=== PATIENT | male | born 1975 | race Hispanic/Latino ===

== ENCOUNTER 2021-08-23 13:49 | Emergency (ER) | payer OTHER ==
--- OUTSIDE RECORDS SUMMARY | 2021-08-23 13:53 | XMS REPORT | Continuity of Care Document ---
:1975 Author Organization [facility] t Address [address] [place] [address] [address]. [address] [place] [address] Care Team Providers Name Role Phone COLTEN, Zafar Attending Clinician Unavailable Jimmy Farr DO Attending Clinician BECK Attending Clinician Unavailable BECK Attending Clinician Unavailable Beck SANTANA Attending Clinician PATRICIA Attending Clinician Unavailable Jen CHONG, A Attending Clinician Colten VALENZUELA, A Attending Clinician Lab, Fam Pob I Attending Clinician Unavailable Doctor Unassigned, Name Attending Clinician Unavailable Payers Payer Name Policy Type Policy Number Effective Date Expiration Date S ourjakob [employer] CHOICE POS [id number] 2018 00:00:00 II Problems Condition Condition Condition Status Onset Resolution Last Treating Co mments Source Name Details Category Date Date Treatment Clinician Date Hyperchole Hyperchole Disease Active 2020-0 U nivers sterolemia sterolemia 2-14 it y of 00:00: [address] Prediabete Prediabete Disease Active 2019-0 U nivers s s 2-14 ity of 00:00: [place] [address] 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 Cervical Cervical Disease Active Unive rs herniated herniated 5-12 ity of disc disc 00:00: [place] [address] [facility] Chronic Chronic Disease Active 2017- Univers low back low back 5-12 ity of pain pain 00:00: [place] without without 00 Medical sciatica, sciatica, Bran ch unspecifie unspecifie d back d back pain pain laterality laterality Upper back Upper back Disease Active 2017- U nivers pain pain 5-12 ity of 00:00: [place] [address] [facility] Chronic Chronic Disease Active 2017-0 Univers constipati constipati 5-12 it y of on on 00:00: [address] Allergies, Adverse Reactions, Alerts Allergy Allergy Status Severity Reaction(s) Onset Inactive Treating Comm ents Source Name Type Date Date Clinician NO KNOWN Drug Active Univers ALLERGIE Class ity of S [facility] Social History Social Habit Start Date Stop Date Quantity Comments Source Alcohol intake 2019-10-04 2019-10-04 Ex-drinker [facility] 00:00:00 00:00:00 (finding) [facility] Tobacco use and 2019-10-04 2019-10-04 Never used Universit y of exposure 00:00:00 00:00:00 [facility] Sex Ass[birth year] Universit y of 00:00:00 00:00:00 [facility] Smoking Status Start Date Stop Date Source Never smoker [facility] Medications Ordered Filled Start Stop Current Ordering Indication Dosage Frequency Signature Comments Components Source Medication Medication Date Date Medication? Clinician (SIG) Name Name acetaminoph 2020- No Take by U nivers en 09-2404 mouth ity of (TYLENOL) 17:48[place] 00[place] 6 [place] 325 [place] 52 :00 (six) Medical tablet hours as Branch needed. acetaminoph 2020- No Take by U nivers en -04 04 mouth ity of (TYLENOL) 17:48: 00:[place] 6 [place] 325 mg 52 :00 (six) Medical tablet hours as Branch needed. albuterol Yes [id number] INHALE 2 Univers (PROAIR 2-04 6 PUFFS BY ity of HFA) 90 00:00: MOUTH [place] mcg/actuati 00 EVERY 6 Medic al on inhaler HOURS Branc h NEEDED FOR WHEEZING OR SHORTNESS OF BREATH albuterol 2019- Yes [id number] INHALE 2 Univers (PROAIR 2-04 6 PUFFS BY ity of HFA) 90 00:00: MOUTH [place] mcg/actuati 00 EVERY 6 Medic al on inhaler HOURS Branc h NEEDED FOR WHEEZING OR SHORTNESS OF BREATH albuterol 2019- Yes [id number] INHALE 2 Univers (PROAIR 2-04 6 PUFFS BY ity of HFA) 90 00:00: MOUTH [place] mcg/actuati 00 EVERY 6 Medic al on inhaler HOURS Branc h NEEDED FOR WHEEZING OR SHORTNESS OF BREATH albuterol 2020-0 Yes [id number] INHALE 2 Univers (PROAIR 2-04 6 PUFFS BY ity of HFA) 90 00:00: MOUTH [place] mcg/actuati 00 EVERY 6 Medic al on inhaler HOURS Branc h NEEDED FOR WHEEZING OR SHORTNESS OF BREATH albuterol 2020-0 Yes [id number] INHALE 2 Univers (PROAIR 2-04 6 PUFFS BY ity of HFA) 90 00:00: MOUTH [place] mcg/actuati 00 EVERY 6 Medic al on inhaler HOURS Branc h NEEDED FOR WHEEZING OR SHORTNESS OF BREATH albuterol 2020-0 Yes [id number] INHALE 2 Univers (PROAIR 2-04 6 PUFFS BY ity of HFA) 90 00:00: MOUTH [place] mcg/actuati 00 EVERY 6 Medic al on inhaler HOURS Branc h NEEDED FOR WHEEZING OR SHORTNESS OF BREATH albuterol 2020-0 Yes [id number] INHALE 2 Univers (PROAIR 2-04 6 PUFFS BY ity of HFA) 90 00:00: MOUTH [place] mcg/actuati 00 EVERY 6 Medic al on inhaler HOURS Branc h NEEDED FOR WHEEZING OR SHORTNESS OF BREATH albuterol 2020-0 Yes [id number] INHALE 2 Univers (PROAIR 2-04 6 PUFFS BY ity of HFA) 90 00:00: MOUTH [place] mcg/actuati 00 EVERY 6 Medic al on inhaler HOURS Branc h NEEDED FOR WHEEZING OR SHORTNESS OF BREATH PROAIR HFA 2019-0 Yes [id number] INHALE 2 Univers 90 2-27 PUFFS BY ity of mcg/actuati 00:00: MOUTH [place] on inhaler 00 EVERY 6 Medica l HOURS Branch NEEDED FOR WHEEZING OR SHORTNESS OF BREATH PROAIR HFA 2019-0 2020- No [id number] INHALE 2 Univers 90 2-27 02-04 PUFFS BY ity of mcg/actuati 00:00: 00:00 M[place]TH [place] on inhaler 00 :00 EVERY 6 Medica l HOURS Branch NEEDED FOR WHEEZING OR SHORTNESS OF BREATH PROAIR HFA 2019-0 2020- No [id number] INHALE 2 Univers 90 2-27 02-04 PUFFS BY ity of mcg/actuati 00:00: 00:00 MOUTH [place] on inhaler 00 :00 EVERY 6 Medica l HOURS Branch NEEDED FOR WHEEZING OR SHORTNESS OF BREATH acetaminoph Yes Take by Un derrell en 1-18 mouth ity of (TYLENOL) 15:47: every 6 [place] 325 mg 50 (six) Medical tablet hours as Branch needed. ibuprofen Yes 800mg Take 1 Unive rs 800 mg 5-25 tablet by ity of tablet 00:00: mouth 3 [place] 00 (three) Medical times Branch daily with meals as needed (pain). Take with food. ibuprofen 2020- No 800mg Take 1 Univ ers 800 mg 5-25 02-04 tablet by ity of tablet 00:00: 00:00 mouth 3 [place] 00 :00 (three) Medical times Branch daily with meals as needed (pain). Take with food. ibuprofen 2019- No 800mg Take 1 Univ ers 800 mg 5-25 02-04 tablet by ity of tablet 00:00: 00:00 mouth 3 [place] 00 :00 (three) Medical times Branch daily with meals as needed (pain). Take with food. Immunizations Ordered Filled Immunization Date Status Comments [facility] e Immunization Name Name Influenza Virus 2019-07-26 Completed Universit y of Vaccine 00:00:00 [facility] Influenza Virus 2019-07-26 Completed Universit y of Vaccine 00:00:00 [facility] Influenza Virus 2019-07-26 Completed Universit y of Vaccine 00:00:00 [facility] Influenza Virus 2019-07-26 Completed Universit y of Vaccine 00:00:00 [facility] Influenza Virus 2019-07-26 Completed Universit y of Vaccine 00:00:00 [facility] Influenza Virus 2019-07-26 Completed Universit y of Vaccine 00:00:00 [facility] Influenza Virus 2019-07-26 Completed Universit y of Vaccine 00:00:00 [facility] Influenza Virus 2019-07-26 Completed Universit y of Vaccine 00:00:00 [facility] Influenza Virus 2019-07-26 Completed Universit y of Vaccine 00:00:00 [facility] TDAP (ADACEL) 2016-12-30 Completed University of VACCINE 00:00:00 [facility] TDAP (ADACEL) 2016-12-30 Completed University of VACCINE 00:00:00 [facility] TDAP (ADACEL) 2016-12-30 Completed University of VACCINE 00:00:00 [facility] TDAP (ADACEL) 2016-12-30 Completed University of VACCINE 00:00:00 [facility] TDAP (ADACEL) 2016-12-30 Completed University of VACCINE 00:00:00 [facility] TDAP (ADACEL) 2016-12-30 Completed University of VACCINE 00:00:00 [facility] TDAP (ADACEL) 2016-12-30 Completed University of VACCINE 00:00:00 [facility] TDAP (ADACEL) 2016-12-30 Completed University of VACCINE 00:00:00 [facility] TDAP (ADACEL) 2016-12-30 Completed University of VACCINE 00:00:00 [facility] Vital Signs Vital Name Observation Time Observation Value Comments Source Systolic blood 2019-09-24 17:39:00 108 mm[Hg] Univer sity of pressure [facility] Diastolic blood 2019-09-24 17:39:00 63 mm[Hg] [facility] Heart rate 2019-09-24 17:39:00 72 /min [facility] Body temperature 2019-09-24 17:39:00 36.61 [facility] Body height 2019-09-24 17:39:00 177.8 cm [facility] Body weight 2019-09-24 17:39:00 113.853 kg [facility] BMI 2019-09-24 17:39:00 36.01 kg/m2 [facility] Procedures Procedure Date / Time Performing Clinician Source Performed URINALYSIS 2019-09-25 17:14:00 Alex Macario [facility] PROSTATIC SPECIFIC 2019-09-25 17:09:00 Alex Macario Unive [facility] ANTIGEN SCREEN [facility] THYROID STIMULATING 2019-09-25 17:09:00 Alex Macario Univ [facility] HORMONE [facility] COMP. METABOLIC PANEL 2019-09-25 17:09:00 [id number] LIPID PANEL 2019-09-25 17:09:00 Alex Macario A [facility] ([id number])(TOTAL Medical [place] CHOLESTEROL, TRIGLYCERIDES, HDL) CBC WITH DIFFERENTIAL 2019-09-25 17:09:00 [facility] GLYCOSYL[facility] HEMOGLOBIN 2019-09-25 17:09:00 Alex Macario [facility] (A1C) [facility] HEPATITIS B SURFACE 2019-09-25 17:09:00 Alex Macario [facility] ANTIGEN [facility] HCV ANTIBODY 2019-09-25 17:09:00 Alex Macario Universi [facility] HIV 1/2 AG-AB WITH 2019-09-25 17:09:00 Alex Macario [facility] REFLEX [facility] ASSIGNMENT OF BENEFITS 2019-09-24 17:28:23 Doctor Unassigned, No [facility] Name Medical Branch Encounters Start End Encounter Admission Attending Care Care Encounter Source Date/Time Date/Time Type Type Clinicians Facility Department ID 2020-12-14 2020-12-14 Outpatient R COLTEN [facility] [id number] Univers 11:00:00 11:00:00 WONDIFUL [id number] ity o [facility] 2020-12-14 2020-12-14 Outpatient R COLTEN [facility] [id number] Univers 11:00:00 11:00:00 WONDIFUL ity o [facility] 2020-11-12 2020-11-12 Outpatient COLTEN [facility] [id number] Univers 11:15:00 11:15:00 WONDIFUL [id number] ity o [facility] 2020-11-05 2020-11-05 [facility] [id number] Univers 00:00:00 00:00:00 Outreach [facility] [id number] [facility] [id number] Leah ORTEGA [phone] Tn dical 388 Branch 2020-09-03 2020-09-03 Outpatient COLTEN [facility] [id number] Univers 09:30:00 09:30:00 WONDIFUL [id number] ity o [facility] 2020-08-27 2020-08-27 [facility] [id number] Univers 11:15:00 11:15:00 WONDIFUL [id number] ity o [facility] 2020-08-27 2020-08-27 Outpatient R COLTEN [facility] [id number] Univers 11:15:00 11:15:00 WONDIFUL ity o f [facility] 2020-07-24 2020-07-24 Outpatient COLTEN [facility] [id number] Univers 09:30:00 09:30:00 WONDIFUL [id number] ity o f [facility] 2020-07-24 2020-07-24 Outpatient R COLTEN [facility] [id number] Univers 09:30:00 09:30:00 WONDIFUL ity o f [facility] 2019-11-28 2019-11-28 Outpatient R ASH SOLARES [facility] [id number] Univers 12:40:00 12:40:00 ASH SOLARES [id number] i ty of [facility] 2019-11-28 2019-11-28 Outpatient R ASH SOLARES [facility] [id number] Univers 12:40:00 12:40:00 ASH SOLARES i ty of [facility] 2019-11-28 2019-11-28 [facility] [id number] Univers 08:09:32 08:29:32 ne Visit Ash Chavez [id number] [id number] Profess[place] [phone] Tn dical nal 085 [facility] 2019-11-14 2019-11-14 Outpatient R GOMEZ, [facility] [id number] Univers 10:45:00 10:45:00 FRANCISCO [id number] ity of [facility] 2019-11-14 2019-11-14 Outpatient R GOMEZ, [facility] [id number] Univers 10:45:00 10:45:00 FRANCISCO ity of [facility] 2019-11-12 2019-11-12 Telephone [facility] [id number] Univers 00:00:00 00:00:00 Kait Ch[place] [id number] [id number] [phone] Tn dical nal 377 [facility] 2019-11-11 2019-11-11 Telephone [facility] [id number] Univers 00:00:00 00:00:00 Kait A [place] [id number] [id number] [phone] Tn dical nal 377 [facility] 2019-11-07 2019-11-07 Outpatient R ASH SOLARES [facility] [id number] Univers 11:00:00 11:00:00 ASH SOLARES i ty of [facility] 2019-10-04 2019-10-04 [facility] [id number] Univers 00:00:00 00:00:00 Management [facility] [id number] ity of [place] [id number] [place] as Professio [phone] Tn dical nal 044 [place] [address] [facility] 2019-09-25 2019-09-25 Developer Support Engineer Lab, Adc Fam Pob I [facility] [id number] Univers 11:02:34 11:52:42 Visit Alex Macario Health [id number] 0 ity of [place] [id number] [place] as Professio [phone] Tn dical nal 044 [place] [address] Building [facility] 2019-09-24 2019-09-24 Office Colten [facility] [id number] Univers 11:30:14 12:07:46 Visit [facility] [id number] ity of [place] [id number] [place] as Professio [phone] Tn dical nal 044 [place] [address] [facility] 2019-09-24 2019-09-24 Orders Doctor DEBORAH [id number] Univers 00:00:00 00:00:00 Only Unassigned, GEOVANNA [id number] ity of [facility] [id number] [place] as [phone] [address] Results Test Description Test Time Test Comments Results Result Comments Source HCV ANTIBODY 2019-09-25 21:51:00 Test Item Value Reference Range Interpretation Comme nts HCV Ab (test code = 37124-2) Negative HCV Semi-Quantitative (test code = 50244-9) [facility] 21:39:00 Test Item Value Reference Range Interpretation Comments APPEARANCE (test code = Clear Clear 3224599248) COLOR (test code = Yellow Yellow 5758301115) PH (test code = 4.8-8.0 6478982656) SP GRAVITY (test code = 1.003-1.030 0949623237) GLU U QUAL (test code = Normal Normal 9495581004) BLOOD (test code = 1+ Negative A 6487036785) KETONES (test code = Negative Negative 2765205393) PROTEIN (test code = Negative Negative 2887-8) UROBILIN (test code = Normal Normal 9484517546) BILIRUBIN (test code = Negative Negative 3344922921) NITRITE (test code = Negative Negative 8507415176) LEUK TRAMAINE (test code = Negative Negative 0516341582) RBC/HPF (test code = See_Comment [Autom ated message] 3914737376) The system Mieple generated this result transmitted ref erence range: 0 - 3 HP F. The reference range was not used to int erpret this result as normal/abnormal . WBC/HPF (test code = <1 See_Comment [Autom ated message] 9361058975) The system Mieple generated this result transmitted ref erence range: 0 - 5 HP F. The reference range was not used to int erpret this result as normal/abnormal . BACTERIA (test code = Few Negative A 9056397147) SQ EPITH (test code = <1 HPF 4166388410) Lab Interpretation (test Abnormal code = 81394-6) [facility] SURFACE [id number] 21:33:00 Test Item Value Reference Range Interpretation Comments HBsAg Semi-Quantitative (test code = Negative Negative 5195-3) [facility] AG-AB WITH [id number] 19:10:00 Test Item Value Reference Range Interpretation Comments HIV Negative Negative Semi-quantitative (test code = 54172-3) LIYAH (test code = Non-reactive for HIV-1 LIYAH) antigen and HIV-1/HIV-2 antibodies. ?No laboratory evidence of HIV infection. ?Repeat in 2-4 weeks if acute HIV infection is suspected. [facility]YRO[facility] STIMULATING [id number] 19:01:00 Test Item Value Reference Range Interpretation Comments TSH (test code = See_Comment [Automated message] 6865477068) The system Mieple generated this result transmitted ref erence range: 0.45 - 4 .70 mIU/L. The refe rence range was not u sed to interpret this result as normal/abnor mal. Lab Interpretation (test Normal code = 56017-1) [facility]stPROSTATIC SPECIFIC ANTIGEN [id number] 19:01:00 Test Item Value Reference Range Interpretation Comments PSA (test code = 1.03 ng/mL See_Comment [Automated 0460747956) message] The system which generated this result transmitted reference range : <=4.00. The reference range was not used to interpret this result as normal/abnormal . LIYAH (test code = LIYAH) Biotin has been reported to cause a negative bias, interpret results relative to patient's use of biotin. Lab Interpretation Normal (test code = 00665-6) [facility]stGLYCOSYLATED HEMOGLOBIN (A1C)2019-09-25 18:44:00 Test Item Value Reference Interpretation Comments Range HGB A1C (test code = See_Comment [Autom ated 4548-4) message] The system which generated this result transmitted reference range : 4.0 - 6.0 % NGSP. The reference range was not used to interpret this result as normal/abnormal . LIYAH (test code = %A1C (NGSP) LIYAH) Interpretation (ADA)4.8-5.6 ? ? Normal or (Non-Diabetic Range)5.7-6.4 ? ? Increased Risk (Pre-Diabetic)>6.5 ?Diabetes Indicated Lab Interpretation Normal (test code = 37557-8) [facility]COMP. METABOLIC PANEL (76632)2019-09-25 18:30:00 Test Item Value Reference Range Interpretation Comments NA (test code = 134 mmol/L 135-145 L 3188555854) K (test code = 4.3 mmol/L 3.5-5 1007465257) CL (test code = 95 mmol/L 98-108 L 2719288498) CO2 TOTAL (test code = 29 mmol/L 23-31 1955378097) AGAP (test code = 2-16 0882418462) BUN (test code = 12 mg/dL 7-23 3559374968) GLUCOSE (test code = 102 mg/dL 70-110 8269667242) CREATININE (test code = 0.65 mg/dL 0.6-1.25 7839441188) TOTAL BILI (test code = 0.6 mg/dL 0.1-1.0 9838706558) CALCIUM (test code = 9.8 mg/dL 8.6-10.6 2965627254) T PROTEIN (test code = 7.4 g/dL 6.3-8.2 7404252075) ALBUMIN (test code = 4.9 g/dL 3.5-5 7310590029) ALK PHOS (test code = 50 U/L 34-122 9064561120) ALTv (test code = 32 U/L 5-50 1742-6) AST(SGOT) (test code = 30 U/L 13-40 8973551791) eGFR Calculation mL/min/1.73m2 (Non-) (test code = 2964080590) eGFR Calculation mL/min/1.73m2 () (test code = 6105714836) LIYAH (test code = LIYAH) Association of Glomerular Filtration Rate (GFR) and Staging of Kidney Disease* + --+ --+ ------+| GFR (mL/min/1.73 m2) ?| With Kidney Damage ?| ?Without Kidney Damage+ --------+ --------+ +| ?>90 ?| ?Stage one ?| ? Normal ?+ ---+ ---+ -------+| ?60-89 ?| ?Stage two ?| ? Decreased GFR ? + --+ --+ ------+| ?30-59 ?| ?Stage three ?| ? Stage three ? + --+ --+ ------+| ?15-29 ?| ?Stage four ? | ? Stage four ?+ ---+ ---+ -------+| ?<15 (or dialysis) ? ?| ?Stage five ? | ? Stage five ?+ ---+ ---+ -------+ *Each stage assumes the associated GFR level has been in effect for at least three months. ?Stages 1 to 5, with or without kidney disease, indicate chronic kidney disease. Notes: Determination of stages one and two (with eGFR >59mL/min/1.73 m2) requires estimation of kidney damage for at least three months as defined by structural or functional abnormalities of the kidney, manifested by either:Pathological abnormalities or Markers of kidney damage (including abnormalities in the composition of the blood or urine or abnormalities in imaging tests). Lab Interpretation Abnormal (test code = 54760-1) [facility]stLIPID PANEL (72562)(TOTAL CHOLESTEROL, TRIGLYCERIDES, HDL)2019-09-25 18:30:00 Test Item Value Reference Range Interpretation Comments CHOL (test code = 202 mg/dL 120-200 H 9664275163) HDL (test code = 43 mg/dL >40 5947653123) HDLC RATIO (test code = See_Comment [Au tomated message] 6840008985) The system Mieple generated this result transmit ferny reference range : <=5.0. The refe rence range was not u sed to interpret th is result as normal/abnormal . TRIG (test code = 137 mg/dL 30-170 6706859705) LDL CHOL (test code = 132 mg/dL See_Comment [Auto mated message] 99411-6) The system Mieple generated this result transmit ferny reference range : <=160. The refe rence range was not u sed to interpret th is result as normal/abnormal . VLDL (test code = 27 mg/dL 5-60 3735351328) Lab Interpretation (test Abnormal code = 68435-9) [facility] Hill[facility]stCB WITH [id number] 17:59:00 Test Item Value Reference Range Interpretation Comments WBC (test code = See_Comment [Automated message] 6690-2) The system Mieple generated this result transmitted ref erence range: 4.20 - 1 0.70 10*3/?L. The re ference range was not u sed to interpret this result as normal/abnor mal. RBC (test code = See_Comment [Automated message] 789-8) The system Mieple generated this result transmitted ref erence range: 4.26 - 5 .52 10*6/?L. The re ference range was not u sed to interpret this result as normal/abnor mal. HGB (test code = 14.9 g/dL 12.2-16.4 718-7) HCT (test code = 44.0 % 38.4-49.3 4544-3) MCV (test code = 91.7 fL 81.7-95.6 787-2) MCH (test code = 31.0 pg 26.1-32.7 785-6) MCHC (test code = 33.9 g/dL 31.2-35 786-4) RDW-SD (test code 41.2 fL 38.5-51.6 = 70575-8) RDW-CV (test code 12.3 % 12.1-15.4 = 788-0) PLT (test code = See_Comment [Automated message] 777-3) The system whic h generated this result transmitted ref erence range: 150 - 32 8 10*3/?L. The re ference range was not u sed to interpret this result as normal/abnor mal. MPV (test code = 10.7 fL 9.8-13 17215-3) NRBC/100 WBC (test See_Comment [Automat ed message] code = 4056215004) The syste m which generated this result transmitted ref erence range: 0.0 - 10 .0 /100 WBCs. The refer ence range was not u sed to interpret this result as normal/abnor mal. NRBC x10^3 (test <0.01 See_Comment [Automated message] code = 9646422217) The syste m which generated this result transmitted ref erence range: 10*3/?L. The reference range was not used to interpr et this result as normal/abnormal . GRAN MAT (NEUT) % 66.3 % (test code = 770-8) IMM GRAN % (test 0.40 % code = 6612844044) LYMPH % (test code 22.6 % = 736-9) MONO % (test code 7.9 % = 5905-5) EOS % (test code = 1.9 % 713-8) BASO % (test code 0.9 % = 706-2) GRAN MAT 3.78 10*3/uL 1.99-6.95 x10^3(ANC) (test code = 7495479008) IMM GRAN x10^3 <0.03 0-0.06 (test code = 2463350564) LYMPH x10^3 (test 1.29 10*3/uL 1.09-3.23 code = 731-0) MONO x10^3 (test 0.45 10*3/uL 0.36-1.02 code = 742-7) EOS x10^3 (test 0.11 10*3/uL 0.06-0.53 code = 711-2) BASO x10^3 (test 0.05 10*3/uL 0.01-0.09 code = 704-7) [facility]"
--- NOTE | 2021-08-23 15:02 | ER ---
Nurse's Notes [facility] Name: Lawson Fields Jr Age: 46 yrs Sex: Male : 1975 Arrival Date: 08/23/2021 Time: 13:50 Bed Waiting Private MD: Diagnosis: Insomnia Presentation: 08/23 14:41 Chief complaint: Patient states: hasn't slept in over 3 days, had an episode when he iw was in his 20's that lasted 5 days, they gave him some medication and it got better. About three weeks ago went on vacation after working nonstop for the past year, sleep patterns have changed, is sleeping later and going to bed later , thinks may have thrown off his sleep pattern. Coronavirus screen: At this time, the client does not indicate any symptoms associated with coronavirus-19. Ebola Screen: Patient negative for fever greater than or equal to 101.5 degrees Fahrenheit, and additional compatible Ebola Virus Disease symptoms Patient denies exposure to infectious person. Patient denies travel to an Ebola-affected area in the 21 days before illness onset. No symptoms or risks identified at this time. Initial Sepsis Screen: Does the patient meet any 2 criteria? No. Patient's initial sepsis screen is negative. Does the patient have a suspected source of infection? No. Patient's initial sepsis screen is negative. Risk Assessment: Do you want to hurt yourself or someone else? Patient reports no desire to harm self or others. Onset of symptoms was August 21, 2020. 14:41 Method Of Arrival: Ambulatory iw 14:41 Acuity: MARY 3 iw Historical: - Allergies: 14:44 No Known Allergies; iw - Home Meds: 14:44 None [Active]; iw - PMHx: 14:44 None; iw - PSHx: 14:44 None; iw - Immunization history:: Client reports receiving the 2nd dose of the Covid vaccine. - Social history:: Smoking status: Patient denies any tobacco usage or history of. Vital Signs: 14:41 BP 130 / 93; Pulse 73; Resp 16; Pulse Ox 100% on R/A; iw ED Course: 13:50 Patient arrived in ED. am2 14:42 Triage completed. iw 14:44 Arm band placed on. iw 14:45 Darinel Manciin NP is PHCP. pm1 14:45 Julio Bush MD is Attending Physician. pm1 15:27 Briana Noriega RN is Primary Nurse. iw Administered Medications: No medications were administered Outcome: 15:01 Discharge ordered by . pm1 15:27 Patient left the ED. iw Signatures: Briana Noriega RN RN iw Darinel Manciin NP REFRIGERATOR GLAZ[employer] pm1 ReyesLorena treadwell am2 Corrections: (The following items were deleted from the chart) 14:44 14:41 Chief complaint: Patient states: hasn't slept in over 3 days, had an episode when iw he was in his 20's that lasted 5 days, they gave him some medication and it got better, iw
--- NOTE | 2021-08-23 15:02 | EDPHYS ---
Physician Documentation [facility] Name: Lawson Fields Jr Age: 46 yrs Sex: Male : 1975 Arrival Date: 08/23/2021 Time: 13:50 Bed Waiting Private MD: SELAM Physician Julio Bush HPI: 08/23 15:00 This 46 yrs old Male presents to ER via Ambulatory with complaints of hasnt pm1 slept x3 days. 15:00 Onset: The symptoms/episode began/occurred 3 day(s) ago. Associated signs and symptoms: pm1 The patient has no apparent associated signs or symptoms. Modifying factors: The patient symptoms are alleviated by nothing, the patient symptoms are aggravated by possible anxiety. The patient has experienced a previous episode, many years ago. The patient has not recently seen a physician. Patient reports insomnia for the past 3 days. History of bipolar disorder that he managed with CBT and "growing up." Has not taken any medications for psychiatric illness for the past 7 years. Historical: - Allergies: 14:44 No Known Allergies; iw - Home Meds: 14:44 None [Active]; iw - PMHx: 14:44 None; iw - PSHx: 14:44 None; iw - Immunization history:: Client reports receiving the 2nd dose of the Covid vaccine. - Social history:: Smoking status: Patient denies any tobacco usage or history of. ROS: 15:00 Constitutional: Negative for fever, chills, and weight loss, Cardiovascular: Negative pm1 for chest pain, palpitations, and edema, Respiratory: Negative for shortness of breath, cough, wheezing, and pleuritic chest pain, Abdomen/GI: Negative for abdominal pain, nausea, vomiting, diarrhea, and constipation, MS/Extremity: Negative for injury and deformity, Skin: Negative for injury, rash, and discoloration, Neuro: Negative for headache, weakness, numbness, tingling, and seizure. 15:00 Psych: Positive for insomnia. 15:00 All other systems are negative. Exam: 15:00 Constitutional: This is a well developed, well nourished patient who is awake, alert, pm1 and in no acute distress. Head/Face: Normocephalic, atraumatic. 15:00 Skin: Warm, dry with normal turgor. Normal color with no rashes, no lesions, and no evidence of cellulitis. MS/ Extremity: Pulses equal, no cyanosis. Neurovascular intact. Full, normal range of motion. 15:00 Cardiovascular: Exam negative for acute changes, Rate: normal, Rhythm: regular, Pulses: no pulse deficits are appreciated. 15:00 Respiratory: Exam negative for acute changes, respiratory distress, shortness of breath. 15:00 Neuro: Exam negative for acute changes, Orientation: is normal, Mentation: is normal, Motor: is normal, moves all fours. 15:00 Psych: Exam negative for acute changes, Behavior/mood is pleasant, cooperative, Affect is calm, Oriented to person, place, time, Patient has no thoughts/intents to harm self or others. Judgement / Insight is normal. Vital Signs: 14:41 BP 130 / 93; Pulse 73; Resp 16; Pulse Ox 100% on R/A; iw MDM: 14:46 ED course: pmpaware reviewed. pm1 15:00 Data reviewed: vital signs. Data interpreted: Pulse oximetry: on room air is 100 %. pm1 Interpretation: normal. Counseling: I had a detailed discussion with the patient and/or guardian regarding: the historical points, exam findings, and any diagnostic results supporting the discharge/admit diagnosis, the need for outpatient follow up, to return to the emergency department if symptoms worsen or persist or if there are any questions or concerns that arise at home. 15:01 Patient medically screened. pm1 Administered Medications: No medications were administered Disposition: 08/24 08:42 Co-signature as Attending Physician, Julio Bush MD I agree with the assessment and chante plan of care. Disposition Summary: 08/23/21 15:01 Discharge Ordered Location: Home pm1 Problem: new pm1 Symptoms: have improved pm1 Condition: Stable pm1 Diagnosis - Insomnia pm1 Followup: pm1 - With: Emergency Department - When: As needed - Reason: Worsening of condition Followup: pm1 - With: Private Physician - When: 2 - 3 days - Reason: Recheck today's complaints, Continuance of care, Re-evaluation by your physician Discharge Instructions: - Discharge Summary Sheet pm1 - Insomnia pm1 Forms: - Medication Reconciliation Form pm1 - Thank You Letter pm1 - Antibiotic Education pm1 - Prescription Opioid Use pm1 Prescriptions: - Ambien 5 mg Oral Tablet - take 1 tablet by ORAL route once daily As needed at bedtime; 6 tablet; Refills: pm1 0, Product Selection Permitted Signatures: Julio Bush MD MD cha Williams, Irene, RN RN Darinel Kirby, JABARI [employer] pm1
[2021-08-23 15:31] VITALS: BP 130/93; O2SAT 100
== END 2021-08-23 15:27 | disposition home or self-care (01) ==
LOC: ER 13:49
DX: G47.00 Insomnia, unspecified (principal)
CPT/HCPCS: 99281